=== PATIENT | female | born 1955 | race Caucasian/White ===

== ENCOUNTER 2017-03-25 19:00 | Emergency (ER) | payer MEDICARE ==
[2017-03-25] MEDS ORDERED: Acetaminophen TAB* 325 MG PO ONE (19:35)
[2017-03-25] MEDS ORDERED: Albuterol/Ipratropium NEB.SOL* Albuterol 2.5 MG/Ipratropium 0.5 MG 3 ML INH ONE (19:35)
[2017-03-25] MEDS ORDERED: NS 0.9% 1000 ML* 1,000 ML IV ONE ×2 (19:35→21:49)
[2017-03-25] MEDS ORDERED: methylPREDNISolone 125 MG* 2 ML VIAL IV ONE (19:35)
[2017-03-25] MEDS ORDERED: Magnesium Sulfate 2 GM IV* 2 GM/50 ML BAG IVPB ONE (19:40)
[2017-03-25 20:03] LABS: ABS Basophils 0.1 10^3/ul (0-0.2); ABS Eosinophils 0 10^3/ul (0-0.6); ABS Lymphocytes 0.4 10^3/ul (1.0-4.8); ABS Monocytes 0.4 10^3/ul (0-0.8); ABS Neutrophils 3.9 10^3/ul (1.5-7.7); ABS Nucleated RBC 0 10^3/ul; Eosinophil % 0 % (0-6); Hematocrit 39 % (35-47); Hemoglobin 13.5 g/dl (12.0-16.0); Lymphocyte % 8.1 % (25-47); Mean Corpuscular HGB Conc 35 g/dl (31-36); Mean Corpuscular Hemoglobin 31 pg (27-31); Mean Corpuscular Volume 88 fL (80-97); Mean Platelet Volume 9 um3 (7.4-10.4); Nucleated Red Blood Cells % 0; Platelet Count 166 10^3/ul (150-450); Red Blood Count 4.39 10^6/ul (4.0-5.4); Red Cell Distribution Width 14 % (10.5-15); White Blood Count 4.8 10^3/ul (3.5-10.8)
[2017-03-25 20:21] LABS: EGFR Non-African American 96.7 (>60)
--- NOTE | 2017-03-25 20:23 | RAD ---
Indication: Shortness of breath. Single frontal view of the chest performed at 2010 hours was reviewed. Comparison is made with previous exam dated February 19, 2016. No mediastinal shift is noted. Heart is of normal size and configuration. Lung taylor appear clear. IMPRESSION: NO ACTIVE CARDIOPULMONARY DISEASE IS NOTED.
[2017-03-25] MEDS ORDERED: Oseltamivir CAP* 75 MG PO ONE (20:36)
[2017-03-25] MEDS ORDERED: Potassium Chlor TAB* 20 MEQ TAB.ER PO ONE (20:37)
[2017-03-25] MEDS: Albuterol 2.5 MG/3 ML NEB.SOL* (0.083%) INH SCH (20:38)
--- NOTE | 2017-03-25 22:31 | ED ---
Bud Art Thomas, scribed for Raheem Dowell MD on 03/25/17 at 1938 . Shortness of Breath - HPI Summary HPI Summary: The patient is a 61 year old female presenting to the emergency department complaining of difficulty breathing for the last day and a half. The patient has treated the symptoms with an inhaler prior to arrival. Patient additionally complains of nausea, vomiting, nasal congestion, and fever (101.1 yesterday and 100.3 in the ED). Patient denies chest pain. She is not on home oxygen. Past medical history includes [place] in 2016. Past surgical history includes cardiac stents. The patient is a 1 PPD smoker for the last 40 years. - History of Current Complaint Chief Complaint: EDShortnessOfBreath Hx Obtained From: Patient Onset/Duration: Lasting Days - 1.5, Still Present Timing: Constant Current Severity: Moderate Dyspnea At: Rest Aggrevating Factors: Nothing Alleviating Factors: Other - Patient did have an inhaler treatment earlier today Associated Signs & Symptoms: Fever, Nasal Congestion - Allergy/Home Medications Allergies/Adverse Reactions: Allergies Allergy/AdvReac Type Severity Reaction Status Date / Time Penicillin G Allergy HIVES-ITCHY Verified 03/25/17 19:23 Sulfa Drugs Allergy HIVES- Verified 03/25/17 19:23 ITCHY Adhesive Tape AdvReac See Comment Verified 03/25/17 19:23 PMH/Surg Hx/FS Hx/Imm Hx Previously Healthy: No Endocrine/Hematology History: Denies: Hx Diabetes Cardiovascular History: Reports: Hx Angina, Hx Cardiac Arrest, Hx Coronary Artery Disease, Hx Hypercholesterolemia, Hx Hypertension, Hx Myocardial Infarction, Other Cardiovascular Problems/Disorders - Palpitations; Stent Denies: Hx Pacemaker/ICD, Hx Valvular Heart Disease Respiratory History: Reports: Hx Asthma - USES INHALERS, USUALLY SEASONAL, Hx Chronic Obstructive Pulmonary Disease (COPD), Other Respiratory Problems/ Disorders - Bronchitis History: Denies: Hx Renal Disease Musculoskeletal History: Reports: Hx Back Problems, Other Musculoskeletal History - shoulder and neck pain, carpel tunnel syndrome Denies: Hx Osteoporosis Sensory History: Reports: Hx Contacts or Glasses Denies: Hx Hearing Aid Opthamlomology History: Reports: Hx Contacts or Glasses Psychiatric History: Denies: Hx Panic Disorder - Cancer History Hx Chemotherapy: No Hx Radiation Therapy: No - Surgical History Surgery Procedure, Year, and Place: LT ELBOW 1983 -EPICONDYLITIS; Lt SHOULDER- ARTHROSCPOIC 11/11; CARPAL TUNNEL Rt 1992. 01/29/14 - Lt CARPAL TUNNEL AND ELBOW /ULNAR REPAIR. TONSILECTOMY; Cardiac Stent 02/2016' Hx Anesthesia Reactions: No Infectious Disease History: No Infectious Disease History: Reports: Hx Shingles Denies: Hx Clostridium Difficile, Hx Hepatitis, Hx Human Immunodeficiency Virus (HIV), Hx of Known/Suspected MRSA, Hx Tuberculosis, History Other Infectious Disease, Traveled Outside the [place] in Last 30 Days - Family History Known Family History: Positive: Cardiac Disease - Social History Alcohol Use: Occasionally Alcohol Amount: Maybe two drinks per week Substance Use Type: Reports: None Substance Use Comment - Amount & Last Used: oxycontin, oxycodone Hx Tobacco Use: Yes Smoking Status (MU): Current Every Day Smoker Type: Cigarettes Amount Used/How Often: /4 PPD-1/2 PPD Have You Smoked in the Last Year: Yes Review of Systems Positive: Fever Positive: Other - Nasal congestion Negative: Chest Pain Positive: Other - Difficulty breathing Positive: Vomiting, Nausea All Other Systems Reviewed And Are Negative: Yes Physical Exam - Summary Physical Exam Summary: VITAL SIGNS: Reviewed. GENERAL: Patient is a well-developed and nourished female who is lying comfortable in the stretcher. Patient is not in any acute respiratory distress. HEAD AND FACE: No signs of trauma. No ecchymosis, hematomas or skull depressions. No sinus tenderness. EYES: PERRLA, EOMI x 2, No injected conjunctiva, no nystagmus. EARS: Hearing grossly intact. Ear canals and tympanic membranes are within normal limits. MOUTH: Oropharynx within normal limits. NECK: Supple, trachea is midline, no adenopathy, no JVD, no carotid bruit, no c- spine tenderness, neck with full ROM. CHEST: Symmetric, no tenderness at palpation LUNGS: She has bilateral expiratory wheezes. CVS: She is tachycardic. Regular rhythm, S1 and S2 present, no murmurs or gallops appreciated. ABDOMEN: Soft, non-tender. No signs of distention. No rebound no guarding, and no masses palpated. Bowel sounds are normal. EXTREMITIES: FROM in all major joints, no edema, no cyanosis or clubbing. NEURO: Alert and oriented x 3. No acute neurological deficits. Speech is normal and follows commands. SKIN: Dry and warm Triage Information Reviewed: Yes Vital Signs On Initial Exam: Initial Vitals Temp Pulse Resp BP Pulse Ox 99.0 F 125 44 125/112 93 03/25/17 19:18 03/25/17 19:18 03/25/17 19:18 03/25/17 19:18 03/25/17 19:18 Vital Signs Reviewed: Yes Diagnostics - Vital Signs Vital Signs Temp Pulse Resp BP Pulse Ox 03/25/17 19:18 99.0 F 125 44 125/112 93 - Laboratory Result Diagrams: 03/25/17 19:45 03/25/17 19:45 Lab Statement: Any lab studies that have been ordered have been reviewed, and results considered in the medical decision making process. - Radiology CXR Xray Interpretation: No Acute Changes - NO ACTIVE CARDIOPULMONARY DISEASE IS NOTED. Dr. Dowell has reviewed this report. Radiology Interpretation Completed By: Radiologist - EKG 19:25 Cardiac Rate: Tachycardia EKG Rhythm: Sinus Tachycardia - at 112 BPM EKG Interpretation: Normal intervals, normal axis, no ischemic changes. Course/Dx - Course Assessment/Plan: The patient is a 61 year old female with a history of IL complaining of difficulty breathing for the last day and a half. Patient additionally complains of nausea, vomiting, and fever. She is tachycardic. She has bilateral expiratory wheezes. In the ED course the patient was given acetaminophen, Ventolin, Duoneb, Tamiflu, potassium chloride, IV fluids, and Solu-Medrol. Bloodwork was obtained and troponin is 0.00. Influenza A is positive. EKG shows sinus tachycardia at 112 BPM with normal axis, normal intervals, and no ischemic changes. CXR shows NO ACTIVE CARDIOPULMONARY DISEASE IS NOTED. The patient is diagnosed with Influenza A. The patient is instructed to follow up with primary care. The patient is prescribed ibuprofen and Tamiflu. - Diagnoses Provider Diagnoses: Influenza A Discharge - Discharge Plan Condition: Stable Disposition: HOME Prescriptions: Ibuprofen TAB* [Motrin TAB* 800 MG] 800 mg PO Q6H PRN #30 tab PRN Reason: Fever/Pain Oseltamivir CAP* [Tamiflu CAP*] 75 mg PO DAILY #10 cap Patient Education Materials: Influenza (ED) Referrals: Angela Siu MD [Primary Care Provider] - 3 Days Additional Instructions: Follow up with your primary care physician in three days. Return to the emergency department for any new or worsening symptoms. The documentation as recorded by the Bud guerrier Thomas accurately reflects the service I personally performed and the decisions made by , Raheem Dowell MD.
[2017-03-25 22:42] VITALS: BP 117/57
== END 2017-03-25 22:37 | disposition home or self-care (01) ==
LOC: ED 19:00
DX: J09.X2 Influenza due to identified novel influenza A virus with other respiratory manifestations (principal); I25.2 Old myocardial infarction; J45.909 Unspecified asthma, uncomplicated; F17.210 Nicotine dependence, cigarettes, uncomplicated; Z86.74 Personal history of sudden cardiac arrest; I25.10 Atherosclerotic heart disease of native coronary artery without angina pectoris; E78.00 Pure hypercholesterolemia, unspecified; I10 Essential (primary) hypertension; J44.9 Chronic obstructive pulmonary disease, unspecified
CPT/HCPCS: 36415; 71010; 80053; 83605; 83880; 84484; 85025; 86140; 87502; 93005; 96360; 96374; 96375; 99285; A9270-GY; J2930; J3475

== ENCOUNTER 2017-05-03 09:28 | Observation (INO) | payer MEDICARE ==
[2017-05-03] MEDS ORDERED: Al Hydrox/Mg Hydrox/Simet LIQ* 30 ML UDC PO ONE (09:34)
[2017-05-03] MEDS ORDERED: Lidocaine 2% VISCOUS* 15 ML UDC PO ONE (09:34)
[2017-05-03] MEDS ORDERED: Nitroglycerin TAB 0.4 MG* 0.4 MG TAB SL ONE (09:34)
[2017-05-03 09:54] LABS: Hematocrit 39 % (35-47); Hemoglobin 13.3 g/dl (12.0-16.0); Mean Corpuscular HGB Conc 34 g/dl (31-36); Mean Corpuscular Hemoglobin 30 pg (27-31); Mean Corpuscular Volume 90 fL (80-97); Mean Platelet Volume 9 um3 (7.4-10.4); Platelet Count 234 10^3/ul (150-450); Red Blood Count 4.39 10^6/ul (4.0-5.4); Red Cell Distribution Width 14 % (10.5-15); White Blood Count 8.2 10^3/ul (3.5-10.8)
[2017-05-03] MEDS ORDERED: Nitroglycerin 2% OINT* 1 GM PAK TOPICAL ONE (09:59)
[2017-05-03] MEDS ORDERED: Aspirin Low Dose CHEW TAB* 81 MG PO ONE (10:01)
[2017-05-03 10:09] LABS: EGFR Non-African American 71.4 (>60)
[2017-05-03 10:12] LABS: ABS Basophils 0.1 10^3/ul (0-0.2); ABS Eosinophils 0.2 10^3/ul (0-0.6); ABS Lymphocytes 2.2 10^3/ul (1.0-4.8); ABS Monocytes 0.6 10^3/ul (0-0.8); ABS Nucleated RBC 0 10^3/ul; Lymphocyte % 27.4 % (25-47); Nucleated Red Blood Cells % 0.1
--- NOTE | 2017-05-03 10:35 | RAD ---
HISTORY: Chest pain COMPARISONS: December 02, 2017 VIEWS: 1: frontal portable view of the chest at 10:01 AM FINDINGS: LINES AND TUBES: None. CARDIOMEDIASTINAL SILHOUETTE: The cardiomediastinal silhouette is normal for portable technique. PLEURA: The costophrenic angles are sharp. No pleural abnormalities are noted. LUNG PARENCHYMA: The lungs are clear. ABDOMEN: The upper abdomen is clear. There is no subphrenic gas. BONES AND SOFT TISSUES: No bone or soft tissue abnormalities are noted. IMPRESSION: NO ACTIVE CARDIOPULMONARY DISEASE.
--- NOTE | 2017-05-03 11:52 | ADMNOTE ---
Subjective Date of Service: 05/03/17 Interval History: ADMISSION HISTORY AND PHYSICAL EXAM: Allergies Allergy/AdvReac Type Severity Reaction Status Date / Time MS Penicillin G Allergy HIVES-ITCHY Verified 03/25/17 19:23 [Penicillin G] MS Sulfa Drugs [Sulfa Drugs] Allergy HIVES- Verified 03/25/17 19:23 ITCHY Adhesive Tape AdvReac See Comment Verified 03/25/17 19:23 Home Medications Medication Instructions Recorded Confirmed Type Nitroglycerin TAB 0.4 MG* 0.4 mg SL Q5M PRN #25 tab 02/23/16 05/03/17 Rx Lisinopril TAB* [Prinivil TAB 5 5 mg PO QPM 03/13/16 05/03/17 History MG*] Metoprolol Succinate XL TAB* 25 mg PO DAILY 05/16/16 05/03/17 History [Toprol XL TAB*] Pregabalin CAP(*) [Lyrica CAP(*)] 25 mg PO BID 07/14/16 05/03/17 History Albuterol HFA INHALER* [Ventolin 2 puff INH Q4H PRN 12/05/16 05/03/17 History HFA Inhaler*] Atorvastatin* [Lipitor 80 MG*] 80 mg PO QPM 12/05/16 05/03/17 History Lidocaine PATCH 5%* [Lidoderm 5% 1 patch TRANSDERM DAILY 01/12/17 05/03/17 History Patch*] Omeprazole CAP* [Prilosec CAP* 20 40 mg PO DAILY 05/03/17 05/03/17 History MG] Ticagrelor* [Brilinta 90 MG*] 60 mg PO BID 05/03/17 05/03/17 History oxyCODONE SR TAB(*) [Oxycontin 10 10 mg PO BID 05/03/17 05/03/17 History mg (*)] oxyCODONE TAB* [Roxycodone TAB 5 5 mg PO Q8H PRN MDD 3 tabs 05/03/17 05/03/17 History mg*] tiZANidine TAB* [Zanaflex TAB*] 4 mg PO BEDTIME 05/03/17 05/03/17 History + HPI: The patient was in her usual state of health when whe awoke at about 5 AM, her usual time, and got ready to go to work . She took her AM meds and had breakfast. At about 6:30 she developed midsternal chest "burning and throbbing " which later radiated to both arms. She went to work. She twice took a NTG with partial relief. Later the pain radiated to both sides of her jaw, which is unusual for her. The jaw pain is gone and she now has some mild soreness/ pain in the midsternal area only. Family History: Findings - 4 siblings have CAD. Social History: Findings - Lives with her who is her SDM. Smokes. No alcohol abuse. Works full-time at [employer]. Past Medical History: Findings - L shoulder, wrist, elbow surgery. Chronic L shoulder pain. RCA stent 02/2016. Review of Systems - Measurements Intake and Output: Intake and Output Last 24 Hours 05/01/17 05/02/17 05/03/17 05/04/17 06:59 06:59 06:59 06:59 Weight 147 lb - Review of Systems Constitutional Symptoms: Negative: Weight Gain, Weight Loss, Weakness, Fatigue, Fever, Night Sweats, Unexplained Falls, Other Dermatology: Positive: Normal HEENT: Positive: Normal Eyes: Positive: Normal Thyroid: Positive: Normal Pulmonary: Positive: Normal Cardiology: Positive: Chest Pain Gastroenterology: Positive: Normal Genital - Urinary: Positive: Normal Musculoskeletal: Positive: Other - shoulder pain Endocrinology: Positive: Normal Hematologic/Lymphatic: Negative: Anemia, Easy Brusing, Hx Leukemia, Hx Lymphoma, Use of Anticoagulant, Use of Antiplatelet Drugs, Other Neurology: Positive: Normal Psychiatry: Positive: Normal Allergic/Immunologic: Negative: Hx Anaphylaxis, Hx Angioedema, Hx Environmental, Hx Seasonal, Athsma, Hx HIV, Immunocompromise, Swollen Glands LymphNodes, Other Objective Vital Signs - 8 hr 05/03/17 05/03/17 05/03/17 09:30 09:36 10:30 Temperature 97.5 F Pulse Rate 91 56 Respiratory 18 16 Rate Blood Pressure 177/155 152/82 136/52 (mmHg) O2 Sat by Pulse 97 Oximetry 05/03/17 05/03/17 05/03/17 11:24 11:26 11:30 Temperature Pulse Rate 53 56 Respiratory 12 12 Rate Blood Pressure 134/65 114/65 (mmHg) O2 Sat by Pulse 98 98 Oximetry Oxygen Devices in Use Now: None Appearance: Alert, partly up on ED stretcher. In good spirits. Looks comfortable. Eyes: No Scleral Icterus Ears/Nose/Mouth/Throat: Clear Oropharnyx, Mucous Membranes Moist Neck: NL Appearance and Movements; NL JVP, No Thyroid Enlargement, Masses Respiratory: Symmetrical Chest Expansion and Respiratory Effort, Clear to Auscultation, Clear to Percussion Cardiovascular: NL Sounds; No Murmurs; No JVD, RRR, No Edema Abdominal: NL Sounds; No Tenderness; No Distention, No Hepatosplenomegaly, - Extremities: No Edema, No Clubbing, Cyanosis, - Skin: No Rash or Ulcers, No Nodules or Sclerosis, - Neurological: Alert and Oriented x 3, NL Sensation Result Diagrams: 05/03/17 09:45 05/03/17 09:45 Assess/Plan/Problems-Billing Assessment: - Patient Problems (1) Chest pain Current Visit: Yes Status: Acute Code(s): R07.9 - CHEST PAIN, UNSPECIFIED SNOMED Code(s): 43307223 Comment: Second troponin, nuclear/exercise stress test. Discussed with Drs. Green and Jhonny. Continue ASA, ticagrelor (60 mg bid), statin, BB. (2) Smoking Current Visit: No Status: Acute Code(s): F17.200 - NICOTINE DEPENDENCE, UNSPECIFIED, UNCOMPLICATED SNOMED Code(s): 29097957 Comment: Patient advised to quit smoking and avoid second hand smoke. Nicotine patch ordered. (3) Chronic left shoulder pain Current Visit: Yes Status: Acute Code(s): M25.512 - PAIN IN LEFT SHOULDER; G89.29 - OTHER CHRONIC PAIN SNOMED Code(s): 08191372 Comment: Home meds ordered.
[2017-05-03] MEDS ORDERED: Nitroglycerin TAB 0.4 MG* 0.4 MG TAB SL PRN (12:32)
[2017-05-03] MEDS ORDERED: Albuterol HFA INHALER* 8 gm MDI INH PRN (12:32)
[2017-05-03] MEDS ORDERED: oxyCODONE TAB* 5 MG TAB PO PRN (12:32)
[2017-05-03] MEDS ORDERED: Nicotine PATCH 21 MG/24 HR* PATCH ONE (13:20)
[2017-05-03] MEDS: Nicotine PATCH 21 MG/24 HR* PATCH TRANSDERM SCH (13:23)
[2017-05-03] MEDS ORDERED: Lisinopril TAB* 5 MG PO SCH (18:00)
[2017-05-03] MEDS ORDERED: Atorvastatin* 80 MG TAB PO SCH (18:00)
[2017-05-03] MEDS: Ticagrelor* 90 MG TAB PO SCH (20:57)
[2017-05-03] MEDS: oxyCODONE SR TAB(*) 10 MG TAB.SR PO SCH (20:58)
[2017-05-03] MEDS ORDERED: tiZANidine TAB* 2 MG PO SCH (21:00)
[2017-05-03] MEDS: Pregabalin CAP(*) 25 MG PO SCH (21:02)
[2017-05-04] MEDS ORDERED: Omeprazole CAP* 20 MG PO SCH (07:30)
[2017-05-04] MEDS ORDERED: Lidocaine PATCH 5%* 1 PATCH TRANSDERM SCH (09:00)
[2017-05-04] MEDS ORDERED: Metoprolol Succinate XL TAB* 25 MG PO SCH (09:00)
[2017-05-04] MEDS ORDERED: Aspirin Low Dose CHEW TAB* 81 MG PO SCH (09:00)
[2017-05-04] MEDS: oxyCODONE SR TAB(*) 10 MG TAB.SR PO SCH (09:22)
[2017-05-04] MEDS: Ticagrelor* 90 MG TAB PO SCH (09:26)
[2017-05-04] MEDS: Pregabalin CAP(*) 25 MG PO SCH (09:27)
[2017-05-04] MEDS: Nicotine PATCH 21 MG/24 HR* PATCH TRANSDERM SCH (09:36)
[2017-05-04 12:27] VITALS: BP 131/66
--- NOTE | 2017-05-04 13:50 | RAD ---
HISTORY: Chest pain COMPARISONS: December 05, 2016 TECHNIQUE: A 1 day stress/rest myocardial perfusion study was performed, with exercise stress. The exercise portion was performed using the Hal protocol, for a total METs of 7. The stress portion was monitored by Dr. Monroe. Gated SPECT imaging was performed, with CT-based attenuation correction DOSE: Stress: Technetium 99m tetrofosmin, 26.53 millicuries, injected at 12:34 PM on May 04, 2017 Rest: Technetium 99m tetrofosmin, 10.15 millicuries, injected at 6:20 AM May 04, 2017 Pharmacologic agent: None FINDINGS: CARDIAC MONITORING: Peak heart rate of 166 bpm, 103% of predicted EF: 73% TID: 1.24 MOTION: Normal motion, with normal wall thickening. PERFUSION: There are no fixed or reversible perfusion defects. OTHER: None IMPRESSION: NO FIXED OR REVERSIBLE PERFUSION DEFECTS. ASSESSMENT: LOW RISK. Based on imaging criteria from ACC/AHA 2002. Guideline Update for the Management of Patient's with Chronic Stable Angina, table 23. Noninvasive Risk Stratification. CPT II Codes: 3570F
--- NOTE | 2017-05-05 01:18 | DS ---
CC: Dr. Garcia; Dr. Green DISCHARGE SUMMARY: DATE OF ADMISSION: 05/03/17 DATE OF DISCHARGE: 05/04/17 HISTORY OF PRESENT ILLNESS: This 61-year-old woman presented with pain radiating to both arms from her mid sternum. Later she went to work and it radiated to both sides of her jaw. The jaw pain went away, but she had some mild residual soreness in the mid sternal area when she arrived at the emergency room. The history and physical exam are detailed in the admission note. The patient does have a history of right coronary artery stenting in the past. She continues on a reduced dose of ticagrelor having finished a year of full dose ticagrelor. She takes aspirin every day. She did not miss any of her medications on the day of admission. The patient had no more pain in the hospital. She was admitted to a telemetry unit. She had 2 troponin levels, both of which were 0. She underwent a nuclear stress test on the day of discharge. This showed no evidence of fixed or reversible hypoperfusion. The patient was discharged with no change in her medical regimen. FINAL DIAGNOSES: 1. Chest pain. 2. Tobacco use. 3. Chronic left shoulder pain. DISCHARGE MEDICATIONS: 1. Nicotine patch 21 mg for 24 hours, change daily. 2. Nitroglycerin 0.4 mg sublingual every 5 minutes p.r.n. 3. Lisinopril 5 mg h.s. 4. Metoprolol succinate 25 mg daily. 5. Pregabalin 25 mg b.i.d. 6. Albuterol inhaler 2 puffs every 4 hours p.r.n. 7. Atorvastatin 80 mg h.s. 8. Lidocaine patch 1 daily. 9. Oxycodone 5 mg every 8 hours p.r.n. 10. Oxycodone SR 10 mg b.i.d. 11. Omeprazole 40 mg daily. 12. Tizanidine 4 mg h.s. 13. Ticagrelor 60 mg bid. 14. ASA 82 mg daily. [id number]/[facility] [place] #: [id number] [facility]
--- NOTE | 2017-05-06 13:24 | ED ---
Reddy Art Stephanie, scribed for Curt Hurley MD on 05/03/17 at 1041 . HPI Chest Pain - HPI Summary HPI Summary: The pt is a 61 y/o F presenting to the ED with c/o CP that began at 06:30 today. Symptoms include bilateral arm pain, radiating jaw pain, WOOD, productive cough (clear sputum) and intermittent chills. The pt denies diaphoresis. The pt had 3 nitroglycerine DEBATE DIRECTOR that have relieved most of her pain. The pt report a similar pain today as when she had cardiac arrests prior. The pt reports having influenza over and the New Year that has since resolved but has left a residual cough. The pt reports she was decreased from 90 mg to 60 mg of Brilinta. She reports having a stress test in last 6 months. - History of Current Complaint Chief Complaint: EDChestPainROMI Time Seen by Provider: 05/03/17 09:56 Hx Obtained From: Patient, Family/Scrubber System Attendant - Onset/Duration: Started Hours Ago - 4, Still Present Time of Onset: 06:30 Timing: Constant, Lasting Hours - 4 Pain Intensity: 3 Pain Scale Used: 0-10 Numeric Chest Pain Location: Mid Sternal Chest Pain Radiates: Yes Chest Pain Radiates To:: Arm - bilaterally, Jaw Character: Cough, Productive, Other: - WOOD, chills Aggravating Factor(s): Nothing Alleviating Factor(s): Nothing Associated Signs and Symptoms: Positive: Headaches, Chills, Productive Cough. Negative: Diaphoresis - Additional Pertinent History Primary Care Physician: [id number] - Allergy/Home Medications Allergies/Adverse Reactions: Allergies Allergy/AdvReac Type Severity Reaction Status Date / Time MS Penicillin G Allergy HIVES-ITCHY Verified 03/25/17 19:23 [Penicillin G] MS Sulfa Drugs [Sulfa Drugs] Allergy HIVES- Verified 03/25/17 19:23 ITCHY Adhesive Tape AdvReac See Comment Verified 03/25/17 19:23 Home Medications: Home Medications Omeprazole CAP* [Prilosec CAP* 20 MG] 40 mg PO DAILY 05/03/17 [History Confirmed 05/03/17] Ticagrelor* [Brilinta 90 MG*] 60 mg PO BID 05/03/17 [History Confirmed 05/03/17] oxyCODONE SR TAB(*) [Oxycontin 10 mg (*)] 10 mg PO BID 05/03/17 [History Confirmed 05/03/17] oxyCODONE TAB* [Roxycodone TAB 5 mg*] 5 mg PO Q8H PRN MDD 3 tabs 05/03/17 [ History Confirmed 05/03/17] tiZANidine TAB* [Zanaflex TAB*] 4 mg PO BEDTIME 05/03/17 [History Confirmed 04/19] PMH/Surg Hx/FS Hx/Imm Hx Endocrine/Hematology History: Denies: Hx Diabetes Cardiovascular History: Reports: Hx Angina, Hx Cardiac Arrest, Hx Coronary Artery Disease, Hx Hypercholesterolemia, Hx Hypertension, Hx Myocardial Infarction, Other Cardiovascular Problems/Disorders - Palpitations; Stent Denies: Hx Congestive Heart Failure, Hx Pacemaker/ICD, Hx Valvular Heart Disease Respiratory History: Reports: Hx Asthma - USES INHALERS, USUALLY SEASONAL, Hx Chronic Obstructive Pulmonary Disease (COPD), Other Respiratory Problems/ Disorders - Bronchitis History: Denies: Hx Renal Disease Musculoskeletal History: Reports: Hx Back Problems, Other Musculoskeletal History - shoulder and neck pain, carpel tunnel syndrome Denies: Hx Osteoporosis Sensory History: Reports: Hx Contacts or Glasses Denies: Hx Hearing Aid Opthamlomology History: Reports: Hx Contacts or Glasses Psychiatric History: Denies: Hx Panic Disorder - Cancer History Hx Chemotherapy: No Hx Radiation Therapy: No - Surgical History Surgery Procedure, Year, and Place: LT ELBOW 1982 -EPICONDYLITIS; Lt SHOULDER- ARTHROSCPOIC 11/11; CARPAL TUNNEL Rt 1992. 01/29/14 - Lt CARPAL TUNNEL AND ELBOW /ULNAR REPAIR. TONSILECTOMY; Cardiac Stent 02/2016' Hx Anesthesia Reactions: No Infectious Disease History: No Infectious Disease History: Reports: Hx Shingles Denies: Hx Clostridium Difficile, Hx Hepatitis, Hx Human Immunodeficiency Virus (HIV), Hx of Known/Suspected MRSA, Hx Tuberculosis, History Other Infectious Disease, Traveled Outside the [place] in Last 30 Days - Family History Known Family History: Positive: Cardiac Disease - Social History Alcohol Use: Occasionally Alcohol Amount: Maybe two drinks per week Substance Use Type: Reports: None Substance Use Comment - Amount & Last Used: oxycontin, oxycodone Hx Tobacco Use: Yes Smoking Status (MU): Current Every Day Smoker Type: Cigarettes Amount Used/How Often: /4 PPD-1/2 PPD Have You Smoked in the Last Year: Yes Review of Systems Positive: Chills. Negative: Fever, Skin Diaphoresis Negative: Erythema Negative: Sore Throat Positive: Chest Pain Positive: Cough - productive. Negative: Shortness Of Breath Negative: Abdominal Pain, Vomiting, Nausea Negative: dysuria, hematuria Positive: Other - bilateral arm pain, radiating jaw pain. Negative: Myalgia, Edema Negative: Rash Neurological: Other - Negative: dizziness Positive: Headache All Other Systems Reviewed And Are Negative: Yes Physical Exam - Summary Physical Exam Summary: Constitutional: Well-developed, Well-nourished, Alert. (-) Distressed Skin: Warm, Dry HENT: Normocephalic; Atraumatic Eyes: Conjunctiva normal Neck: Musculoskeletal ROM normal neck. (-) JVD, (-) Stridor, (-) Tracheal deviation Cardio: Rhythm regular, rate normal, Heart sounds normal; Intact distal pulses; The pedal pulses are 2+ and symmetric. Radial pulses are 2+ and symmetric. (-) Murmur Pulmonary/Chest wall: Effort normal. (-) Respiratory distress, (-) Wheezes, (-) Rales Abd: Soft, (-) Tenderness, (-) Distension, (-) Guarding, (-) Rebound Musculoskeletal: (-) Edema Lymph: (-) Cervical adenopathy Neuro: Alert, Oriented x3 Psych: Mood and affect Normal Triage Information Reviewed: Yes Vital Signs On Initial Exam: Initial Vitals Temp Pulse Resp BP Pulse Ox 97.5 F 91 18 177/155 97 05/03/17 09:30 05/03/17 09:30 05/03/17 09:30 05/03/17 09:30 05/03/17 09:30 Vital Signs Reviewed: Yes Diagnostics - Vital Signs Vital Signs Temp Pulse Resp BP Pulse Ox 05/03/17 09:36 152/82 05/03/17 09:30 97.5 F 91 18 177/155 97 - Laboratory Lab Results: Lab Results 05/03/17 Range/Units 09:45 WBC 8.2 (3.5-10.8) 10^3/ul RBC 4.39 (4.0-5.4) 10^6/ul Hgb 13.3 (12.0-16.0) g/dl Hct 39 (35-47) % MCV 90 (80-97) fL MCH 30 (27-31) pg MCHC 34 (31-36) g/dl RDW 14 (10.5-15) % Plt Count 234 (150-450) 10^3/ul MPV 9 (7.4-10.4) um3 Neut % (Auto) Pending Lymph % (Auto) Pending [place] % (Auto) Pending Eos % (Auto) Pending Baso % (Auto) Pending Absolute Neuts (auto) Pending Absolute Lymphs (auto) Pending Absolute Monos (auto) Pending Absolute Eos (auto) Pending Absolute Basos (auto) Pending Absolute Nucleated RBC Pending Nucleated RBC % Pending Result Diagrams: 05/03/17 09:45 05/03/17 09:45 Lab Statement: Any lab studies that have been ordered have been reviewed, and results considered in the medical decision making process. - Radiology CXR Xray Interpretation: No Acute Changes Radiology Interpretation Completed By: Radiologist - NO ACTIVE CARDIOPULMONARY DISEASE. - EKG 09:35 Cardiac Rate: NL EKG Rhythm: Sinus Rhythm - 72 BPM EKG Interpretation: No STEMI Chest Pain Course/Dx - Course Course Of Treatment: The pt has CAD with stenting and multiple cardiac arrest in the past. She has acute coronary syndrome. CP resolved after nitro. We will recommend admission. Dr. Amaro agreed to admit the pt for a stress test. - Diagnoses Provider Diagnoses: Unstable angina - Provider Notifications Discussed Care Of Patient With: Nikita Amaro - Dr. Amaro agreed to admit the pt for a stress test. Time Discussed With Above Provider: 10:56 Instructed by Provider To: Admit As Inpatient Discharge - Discharge Plan Condition: Stable Disposition: ADMITTED TO [facility] Patient Education Materials: Angina (ED) Referrals: Angela Siu MD [Primary Care Provider] - The documentation as recorded by the Reddy guerrier Stephanie accurately reflects the service I personally performed and the decisions made by , Curt Hurley MD.
== END 2017-05-04 16:45 | disposition home or self-care (01) ==
LOC: ED 09:28 → MEDTELE 12:24
PROVIDERS: ADMIT Internal Medicine; ATTEND Internal Medicine
DX: I20.9 Angina pectoris, unspecified (principal); R07.9 Chest pain, unspecified; Z72.0 Tobacco use; M25.512 Pain in left shoulder
CPT/HCPCS: 36415; 71045; 78452; 80053; 83605; 84484; 85025; 93005; 93017; 99283; 99406; A9270-GY; A9502; G0378

== ENCOUNTER → 2018-06-14 19:36 | Emergency (ER) | payer MEDICARE ==
[~2018-06-14 19:36] MED LIST: Lidocaine 1%* 5 ML VIAL INJ ONE
--- NOTE | 2018-06-14 20:12 | ED ---
Skin Complaint - HPI Summary HPI Summary: 62 yo female presents with cyst to her right cheek for the last year. Over the last 2-3 days has been enlarging and painful. She tried to squeeze the site at home, but had no relief. No fevers or chills. She is requesting that this be lanced today. - History of Current Complaint Chief Complaint: EDRashSkinAbscess Time Seen by Provider: 06/14/18 20:12 Stated Complaint: CYST ON RT CHEEK PER PT Hx Obtained From: Patient Onset Severity: Mild Current Severity: Severe Pain Intensity: 10 Pain Scale Used: 0-10 Numeric - Additional Pertinent History Primary Care Physician: [id number] - Allergy/Home Medications Allergies/Adverse Reactions: Allergies Allergy/AdvReac Type Severity Reaction Status Date / Time Penicillins Allergy Hives Verified 06/14/18 19:42 Sulfa (Sulfonamide Allergy Hives Verified 06/14/18 19:42 Antibiotics) Adhesive Tape AdvReac See Comment Verified 06/14/18 19:42 PMH/Surg Hx/FS Hx/Imm Hx Endocrine/Hematology History: Denies: Hx Diabetes Cardiovascular History: Reports: Hx Angina, Hx Cardiac Arrest, Hx Coronary Artery Disease, Hx Hypercholesterolemia, Hx Hypertension, Hx Myocardial Infarction, Other Cardiovascular Problems/Disorders - Palpitations; Stent Denies: Hx Congestive Heart Failure, Hx Pacemaker/ICD, Hx Valvular Heart Disease Respiratory History: Reports: Hx Asthma - USES INHALERS, USUALLY SEASONAL, Hx Chronic Obstructive Pulmonary Disease (COPD), Other Respiratory Problems/ Disorders - Bronchitis History: Denies: Hx Renal Disease Musculoskeletal History: Reports: Hx Back Problems, Other Musculoskeletal History - shoulder and neck pain, carpel tunnel syndrome Denies: Hx Osteoporosis Sensory History: Reports: Hx Contacts or Glasses Denies: Hx Hearing Aid Opthamlomology History: Reports: Hx Contacts or Glasses Psychiatric History: Denies: Hx Panic Disorder - Cancer History Hx Chemotherapy: No Hx Radiation Therapy: No - Surgical History Surgery Procedure, Year, and Place: LT ELBOW 1982 -EPICONDYLITIS; Lt SHOULDER- ARTHROSCPOIC 11/11; CARPAL TUNNEL Rt 1992. 01/29/14 - Lt CARPAL TUNNEL AND ELBOW /ULNAR REPAIR. TONSILECTOMY; Cardiac Stent 02/2016' Hx Anesthesia Reactions: No Infectious Disease History: No Infectious Disease History: Reports: Hx Shingles Denies: Hx Clostridium Difficile, Hx Hepatitis, Hx Human Immunodeficiency Virus (HIV), Hx of Known/Suspected MRSA, Hx Tuberculosis, History Other Infectious Disease, Traveled Outside the [place] in Last 30 Days - Family History Known Family History: Positive: Cardiac Disease - Social History Alcohol Use: Weekly Alcohol Amount: 4 drinks per week Substance Use Type: Reports: Other Substance Use Comment - Amount & Last Used: Medicinal Marijuana Hx Tobacco Use: Yes Smoking Status (MU): Current Every Day Smoker Type: Cigarettes Amount Used/How Often: 8-10 cigarettes/day Have You Smoked in the Last Year: Yes Review of Systems Constitutional: Negative ENT: Negative Cardiovascular: Negative Respiratory: Negative Gastrointestinal: Negative Positive: Other - sebaceous cyst right cheek Neurological: Negative Psychological: Normal All Other Systems Reviewed And Are Negative: Yes Physical Exam - Summary Physical Exam Summary: GENERAL: NAD. WDWN. No pain distress. SKIN: RIGHT CHEEK: 1.5cm area of firmness underlying the skin. TTP. No induration, warmth, or erythema. NECK: Supple. Nontender. No lymphadenopathy. CHEST: No accessory muscle use. Breathing comfortably and in no distress. CV: Pulses intact. Cap refill <2seconds NEURO: Alert. PSYCH: Age appropriate behavior. Triage Information Reviewed: Yes Vital Signs On Initial Exam: Initial Vitals Temp Pulse Resp BP Pulse Ox 98.7 F 75 16 137/89 97 06/14/18 19:37 06/14/18 19:37 06/14/18 19:37 06/14/18 19:37 06/14/18 19:37 Vital Signs Reviewed: Yes Procedures - Incision and Drainage Right Face Anesthesia: Local Instrument(s): Scalpel - #11 Packing: Other - None Diagnostics - Vital Signs Vital Signs Temp Pulse Resp BP Pulse Ox 06/14/18 19:37 98.7 F 75 16 137/89 97 - Laboratory Lab Statement: Any lab studies that have been ordered have been reviewed, and results considered in the medical decision making process. Course/Dx - Course Course Of Treatment: The procedure was explained to the pt and all questions were answered. A time out was performed, witnessed, and signed. The area was cleansed with an alcohol pad. 1mL of 1% lidocaine without epi was administered and good anesthetization was achieved. A #11 blade was used to make a 4mm linear incision. Copious thick yellow/white purulent matter was able to be expressed. The wound was bandaged with a band-aid. Pt tolerated procedure well. - Diagnoses Provider Diagnoses: Sebaceous cyst Discharge - Sign-Out/Discharge Documenting (check all that apply): Patient Departure Patient Received Moderate/Deep Sedation with Procedure: No - Discharge Plan Condition: Stable Disposition: HOME Patient Education Materials: Abscess (ED), Cyst (ED) Referrals: Tomás Cheema MD [Medical Doctor] - As Soon As Possible Angela Siu MD [Primary Care Provider] - Additional Instructions: If you develop a fever, shortness of breath, chest pain, new or worsening symptoms - please call your PCP or go to the ED. Your blood pressure was high at todays visit. Please see your primary provider within 4 weeks for recheck and re-evaluation. Please keep the area covered with a band-aid until well healed. Please call dermatology at the number below to schedule an appointment for further evaluation. - Billing Disposition and Condition Condition: STABLE Disposition: Home
[2018-06-14 20:52] VITALS: BP 129/82
== END | disposition home or self-care (01) ==
LOC: ED 19:36
DX: L72.3 Sebaceous cyst (principal); I25.119 Atherosclerotic heart disease of native coronary artery with unspecified angina pectoris; I10 Essential (primary) hypertension; Z95.5 Presence of coronary angioplasty implant and graft; J44.9 Chronic obstructive pulmonary disease, unspecified; Z88.0 Allergy status to penicillin; Z88.2 Allergy status to sulfonamides; Z91.048 Other nonmedicinal substance allergy status; Z82.49 Family history of ischemic heart disease and other diseases of the circulatory system; F17.210 Nicotine dependence, cigarettes, uncomplicated
CPT/HCPCS: 10060; 99282

== ENCOUNTER 2021-08-31 19:09 | Inpatient (IN) ==
[2021-08-31 20:11] LABS: ABS Basophils 0.1 10^3/ul (0-0.2); ABS Eosinophils 0.1 10^3/ul (0-0.6); ABS Lymphocytes 1.5 10^3/ul (1.0-4.8); ABS Monocytes 0.7 10^3/ul (0-0.8); ABS Neutrophils 4.8 10^3/ul (1.5-7.7); Eosinophil % 1.6 %; Hematocrit 37 % (35-47); Hemoglobin 12.4 g/dL (12.0-16.0); Lymphocyte % 20.4 %; Mean Corpuscular HGB Conc 34 g/dL (31-36); Mean Corpuscular Hemoglobin 30 pg (27-31); Mean Corpuscular Volume 91 fL (80-97); Mean Platelet Volume 8.9 fL (7.4-10.4); Platelet Count 199 10^3/uL (150-450); Red Blood Count 4.09 10^6 /uL (3.70-4.87); Red Cell Distribution Width 14 % (10-15); White Blood Count 7.1 10^3/uL (3.5-10.8)
[2021-08-31 20:18] LABS: INR 1.14 (0.86-1.15)
[2021-08-31 20:47] LABS: Albumin 4.2 g/dL (3.2-5.2); Albumin/Globulin Ratio 1.8 (1-3); Calcium 9.1 mg/dL (8.6-10.3); Globulin 2.3 g/dL (2-4); Potassium 4.1 mmol/L (3.5-5.0); Total Bilirubin 0.5 mg/dL (0.2-1.0); Total Protein 6.5 g/dL (6.4-8.9); eGFR CKD-EPI 83.5 (>60)
[2021-08-31] MEDS ORDERED: Lactated Ringers 1000 ml BAG 1,000 ML IV ONE (20:50)
[2021-08-31 21:29] LABS: High Sensitivity Troponin 1 Hr 6 pg/mL (<15)
[2021-09-01] MEDS: Enoxaparin 40 MG/0.4 ML SYR SUBCUT SCH ×2 (00:18→20:04)
[2021-09-01] MEDS ORDERED: Albuterol HFA INHALER 8 gm MDI INH PRN (01:16)
[2021-09-01] MEDS: Aspirin EC 81 mg TAB.EC (enteric coated) PO SCH (09:16)
[2021-09-01] MEDS ORDERED: Nitro 2% OINT (Nitroglycerin) 1 INCH/PAK TOPICAL ONE (11:38)
[2021-09-01] MEDS ORDERED: Remdesivir 100 mg Vial 200 MG in NS 0.9% 250 ml 210 ML IV ONE (11:43)
[2021-09-02 09:12] LABS: ABS Lymphocytes 1.5 10^3/ul (1.0-4.8); ABS Monocytes 0.5 10^3/ul (0-0.8); Hematocrit 43 % (35-47); Hemoglobin 14.2 g/dL (12.0-16.0); Lymphocyte % 21.6 %; Mean Corpuscular HGB Conc 33 g/dL (31-36); Mean Corpuscular Hemoglobin 30 pg (27-31); Mean Corpuscular Volume 90 fL (80-97); Mean Platelet Volume 8.9 fL (7.4-10.4); Nucleated Red Blood Cells % 0.1; Platelet Count 231 10^3/uL (150-450); Red Blood Count 4.77 10^6 /uL (3.70-4.87); Red Cell Distribution Width 14 % (10-15); White Blood Count 7.1 10^3/uL (3.5-10.8)
[2021-09-02 09:18] LABS: INR 1.21 (0.86-1.15)
[2021-09-02] MEDS: Remdesivir 100 mg Vial 100 MG in NS 0.9% 250 ml 230 ML IV SCH (09:37)
[2021-09-02 10:02] LABS: Albumin/Globulin Ratio 1.5 (1-3); Calcium 9.8 mg/dL (8.6-10.3); Globulin 2.7 g/dL (2-4); Potassium 4.2 mmol/L (3.5-5.0); Total Bilirubin 0.6 mg/dL (0.2-1.0); Total Protein 6.7 g/dL (6.4-8.9); eGFR CKD-EPI 94.9 (>60)
[2021-09-02] MEDS: Aspirin EC 81 mg TAB.EC (enteric coated) PO SCH (10:13)
[2021-09-02] MEDS ORDERED: Iohexol 350 (CONTRAST) 500 ML MDV IV ONE (17:51)
[2021-09-02] MEDS: Enoxaparin 40 MG/0.4 ML SYR SUBCUT SCH (19:58)
[2021-09-03 06:35] LABS: INR 1.28 (0.86-1.15)
[2021-09-03 06:55] LABS: Albumin/Globulin Ratio 1.5 (1-3); Calcium 9.6 mg/dL (8.6-10.3); Globulin 2.6 g/dL (2-4); Potassium 3.8 mmol/L (3.5-5.0); Total Bilirubin 0.6 mg/dL (0.2-1.0); Total Protein 6.6 g/dL (6.4-8.9); eGFR CKD-EPI 96.9 (>60)
[2021-09-03] MEDS: Aspirin EC 81 mg TAB.EC (enteric coated) PO SCH (09:12)
[2021-09-03] MEDS: Remdesivir 100 mg Vial 100 MG in NS 0.9% 250 ml 230 ML IV SCH (10:04)
[2021-09-03 13:22] VITALS: BP 141/67
== END 2021-09-03 14:10 | disposition home or self-care (01) | DRG 179 ==
LOC: EDHOLD 19:09 → ED 19:09 → SUATTDRO 22:44 → EDHOLD 09-01 03:14 → MEDTELE 09-01 03:56
PROVIDERS: ADMIT Hospitalist; ATTEND Internal Medicine

== ENCOUNTER 2022-03-21 08:33 | Observation (INO) ==
[2022-03-21 09:30] LABS: ABS Basophils 0.1 10^3/ul (0-0.2); ABS Eosinophils 0.2 10^3/ul (0-0.6); ABS Lymphocytes 2.2 10^3/ul (1.0-4.8); ABS Monocytes 0.6 10^3/ul (0-0.8); Eosinophil % 2.3 %; Hematocrit 39 % (35-47); Hemoglobin 13.2 g/dL (12.0-16.0); Lymphocyte % 31.6 %; Mean Corpuscular HGB Conc 34 g/dL (31-36); Mean Corpuscular Hemoglobin 30 pg (27-31); Mean Corpuscular Volume 89 fL (80-97); Nucleated Red Blood Cells % 0.1; Platelet Count 188 10^3/uL (150-450); Red Blood Count 4.39 10^6 /uL (3.70-4.87); Red Cell Distribution Width 14 % (10-15)
[2022-03-21] MEDS ORDERED: Midazolam 5 mg/5 ml VIAL 1 mg/ml 5 ml VIAL (5 mg) ONE (09:46)
[2022-03-21 09:47] LABS: Albumin/Globulin Ratio 1.7 (1-3); Globulin 2.4 g/dL (2-4); Total Bilirubin 0.4 mg/dL (0.2-1.0); Total Protein 6.4 g/dL (6.4-8.9); eGFR CKD-EPI 82.2 (>60)
[2022-03-21] MEDS ORDERED: Heparin 2 UNITS/ML 1000 mls 1,000 ML IV ONE ×3 (09:47→10:58)
[2022-03-21] MEDS ORDERED: VERAPAMIL 2.5 MG/ML 2 ML VIAL ** 5 mg/2 ml ONE (09:47)
[2022-03-21] MEDS ORDERED: fentaNYL 100 mcg/2 ml 50 MCG/ML VIAL ONE (09:47)
[2022-03-21] MEDS ORDERED: Heparin 1,000 UNIT/ML 10 ml (10,000 UNITS) CATHLAB/DIALYSIS ONE ×2 (09:47→11:11)
[2022-03-21] MEDS ORDERED: nitroGLYCERIN DRIP 25,000 MCG/250 ML BTL ONE (09:47)
[2022-03-21] MEDS ORDERED: Lidocaine 1% MPF 5 ML VIAL ONE (09:48)
[2022-03-21] MEDS ORDERED: Iohexol 350 (CONTRAST) 100 ML PAK IV ONE ×2 (09:48→10:45)
[2022-03-21 09:56] LABS: Activated Partial Thrombo Time 32.2 seconds (26.0-38.0); INR 1.13 (0.88-1.18)
[2022-03-21] MEDS ORDERED: niCARdipine 0.1MG/ML IVPREMIX 20 MG/200 ML BAG IV ONE (10:34)
[2022-03-21] MEDS ORDERED: Norepinephrine IV 1 MG/ML 4 ML VIAL ONE (10:42)
[2022-03-21] MEDS ORDERED: Atropine 0.1 MG/ML 10 ml SYR (1 mg) ONE (10:42)
[2022-03-21] MEDS ORDERED: Norepinephrine 16MCG/ML BAG NS 0 MCG/0 ML BAG IV ONE (10:43)
[2022-03-21] MEDS ORDERED: Phenylephrine 40 mcg/mL 10mL (400mcg) SYRINGE ONE (10:46)
[2022-03-21] MEDS ORDERED: Ondansetron 4 mg VIAL 2 MG/ML 2 ml VIAL IV PRN (11:56)
[2022-03-21 18:27] VITALS: BP 108/69
== END 2022-03-21 18:30 | disposition home or self-care (01) ==
LOC: CHICATH 08:33 → ICU 08:33
PROVIDERS: ADMIT Specialist; ATTEND Internal Medicine

== ENCOUNTER 2023-04-22 10:06 | Observation (INO) ==
[2023-04-22 10:47] LABS: ABS Basophils 0.1 10^3/uL (0.0-0.1); ABS Lymphocytes 0.9 10^3/uL (1.0-4.8); ABS Monocytes 0.7 10^3/uL (0.0-0.9); ABS Neutrophils 9.2 10^3/uL (1.5-7.6); ABS Nucleated RBC 0.01 10^3/ul; Hematocrit 42.7 % (35-45); Hemoglobin 14.6 g/dL (11.5-14.3); Mean Corpuscular Hemoglobin 30.7 pg (27-33); Mean Corpuscular Hgb Conc 34.1 g/dL (31-36); Mean Corpuscular Volume 89.8 fL (80-97); Nucleated Red Blood Cells % 0.1 %/100WBC (0.0-0.8); Platelet Count 179 10^3/uL (150-450); Red Blood Count 4.76 10^6/uL (3.63-4.92); Red Cell Distribution Width 14.1 % (12-17); White Blood Count 10.8 10^3/uL (3.8-11.8)
[2023-04-22 11:05] LABS: Albumin/Globulin Ratio 1.5 (1-3); Calcium 8.8 mg/dL (8.6-10.3); Creatinine, Serum 0.68 mg/dL (0.51-0.95); Globulin 2.7 g/dL (2-4); Potassium 3.7 mmol/L (3.5-5.0); Total Bilirubin 0.4 mg/dL (0.2-1.0); Total Protein 6.7 g/dL (6.4-8.9); eGFR CKD-EPI 96.6 (>60)
[2023-04-22 11:07] LABS: Influenza A Molecular Negative (Negative); Influenza B Molecular Negative (Negative); Rapid COVID-19 Molecular Undetected (Undetected)
[2023-04-22] MEDS: Iohexol 350 (CONTRAST) 500 ML MDV IV ONE (11:44)
[2023-04-22] MEDS: Albuterol/Ipratropium NEB.SOL (2.5/0.5 MG) 3 ML NEB.SOLN INH ONE (12:30)
[2023-04-22] MEDS ORDERED: Albuterol 2.5mg/3 ml (0.083%) NEB.SOLN INH PRN (13:02)
[2023-04-22] MEDS: Albuterol/Ipratropium NEB.SOL (2.5/0.5 MG) 3 ML NEB.SOLN INH SCH (15:09)
[2023-04-22] MEDS: Nicotine PATCH 14 MG/24 HR PATCH TRANSDERM SCH (16:47)
[2023-04-23 06:18] LABS: ABS Lymphocytes 1.8 10^3/uL (1.0-4.8); ABS Nucleated RBC 0.01 10^3/ul; Eosinophil % 0.1 %; Hematocrit 39.2 % (35-45); Hemoglobin 13.7 g/dL (11.5-14.3); Lymphocyte % 16.3 %; Mean Corpuscular Hgb Conc 34.8 g/dL (31-36); Mean Platelet Volume 8.9 fL (7.5-11.2); Platelet Count 181 10^3/uL (150-450); Red Blood Count 4.41 10^6/uL (3.63-4.92); Red Cell Distribution Width 13.9 % (12-17); White Blood Count 10.9 10^3/uL (3.8-11.8)
[2023-04-23 06:36] LABS: Calcium 9.1 mg/dL (8.6-10.3); Creatinine, Serum 0.69 mg/dL (0.51-0.95); Magnesium 1.6 mg/dL (1.9-2.7); Potassium 3.6 mmol/L (3.5-5.0); eGFR CKD-EPI 96.3 (>60)
[2023-04-23] MEDS: Aspirin EC 81 mg TAB.EC (enteric coated) PO SCH (08:23)
[2023-04-23] MEDS: methylPREDNISolone SOD SUCC 125 mg 2 ML VIAL IV SCH (08:24)
[2023-04-23] MEDS ORDERED: Albuterol HFA INHALER 8 gm MDI INH PRN (09:37)
[2023-04-23] MEDS: methylPREDNISolone SOD SUCC 40 mg/ml 1 ml VIAL IV SCH (20:46)
[2023-04-24] MEDS: SPIRIVA Respimat (tiotropium) 2.5 mcg/inh Inhaler INH SCH (07:47)
[2023-04-24 10:13] VITALS: BP 108/67
== END 2023-04-24 12:10 | disposition home or self-care (01) ==
LOC: ED 10:06 → EDHOLD 10:06 → SUATTDRO 13:02 → MED 14:39
PROVIDERS: ADMIT Student in an Organized Health Care Education/Training Program; ATTEND Hospitalist

== ENCOUNTER 2024-02-23 10:41 | Inpatient (IN) ==
[2024-02-23 11:47] LABS: ABS Lymphocytes 1.1 10^3/uL (1.0-4.8); ABS Monocytes 0.5 10^3/uL (0.0-0.9); ABS Neutrophils 5.6 10^3/uL (1.5-7.6); Eosinophil % 0.1 %; Hematocrit 44.1 % (35-45); Lymphocyte % 14.5 %; Mean Corpuscular Hemoglobin 30.6 pg (27-33); Mean Corpuscular Volume 90.2 fL (80-97); Mean Platelet Volume 8.8 fL (7.5-11.2); Nucleated Red Blood Cells % 0.1 %/100WBC (0.0-0.8); Platelet Count 199 10^3/uL (150-450); Red Blood Count 4.89 10^6/uL (3.63-4.92); Red Cell Distribution Width 13.6 % (12-17); White Blood Count 7.2 10^3/uL (3.8-11.8)
[2024-02-23] MEDS: Albuterol/Ipratropium NEB.SOL (2.5/0.5 MG) 3 ML NEB.SOLN INH ONE ×2 (11:49→15:57)
[2024-02-23] MEDS: NS 0.9% 1000 ml BAG 1,000 ML IV ONE (11:50)
[2024-02-23 12:36] LABS: Albumin 4.4 g/dL (3.2-5.2); Albumin/Globulin Ratio 1.8 (1-3); C Reactive Protein 9.82 mg/L (<8.01); Calcium 9.6 mg/dL (8.6-10.3); Creatinine, Serum 0.8 mg/dL (0.51-0.95); Globulin 2.4 g/dL (2-4); Potassium 4.3 mmol/L (3.5-5.0); Total Bilirubin 0.5 mg/dL (0.2-1.0); Total Protein 6.8 g/dL (6.4-8.9); eGFR CKD-EPI 81.2 (>60)
[2024-02-23] MEDS: Iohexol 350 (CONTRAST) 500 ML MDV IV ONE (13:10)
[2024-02-23] MEDS: Nicotine PATCH 21 MG/24 HR PATCH TRANSDERM SCH (16:20)
[2024-02-23] MEDS: cefTRIAXone 1 gm/50 mL D5W 1 GM/50 ML BAG IV SCH (16:20)
[2024-02-23] MEDS: Azithromycin 500 mg/250 ml NS 500 MG/250 ML BAG IVPB SCH (16:49)
[2024-02-23] MEDS: Albuterol/Ipratropium NEB.SOL (2.5/0.5 MG) 3 ML NEB.SOLN INH SCH (19:14)
[2024-02-23] MEDS: Irbesartan 150 mg TAB (NF) PO SCH (22:07)
[2024-02-24 06:13] LABS: ABS Lymphocytes 0.7 10^3/uL (1.0-4.8); ABS Monocytes 0.6 10^3/uL (0.0-0.9); Hematocrit 36.6 % (35-45); Hemoglobin 12.4 g/dL (11.5-14.3); Lymphocyte % 10.2 %; Mean Corpuscular Hemoglobin 30.3 pg (27-33); Mean Corpuscular Hgb Conc 33.9 g/dL (31-36); Mean Corpuscular Volume 89.5 fL (80-97); Platelet Count 179 10^3/uL (150-450); Red Blood Count 4.09 10^6/uL (3.63-4.92); Red Cell Distribution Width 13.5 % (12-17); White Blood Count 7.3 10^3/uL (3.8-11.8)
[2024-02-24 06:42] LABS: Calcium 8.9 mg/dL (8.6-10.3); Creatinine, Serum 0.59 mg/dL (0.51-0.95); Magnesium 1.8 mg/dL (1.9-2.7); Potassium 3.6 mmol/L (3.5-5.0); eGFR CKD-EPI 99.3 (>60)
[2024-02-24] MEDS: Magnesium Sulfate 2 gm BAG 2 GM/50 ML BAG IVPB ONE (08:18)
[2024-02-24] MEDS ORDERED: Albuterol/Ipratropium NEB.SOL (2.5/0.5 MG) 3 ML NEB.SOLN INH PRN (08:44)
[2024-02-24] MEDS ORDERED: Saline NASAL SPRAY 0.65% BTL BOTH NARES PRN (10:46)
[2024-02-24] MEDS: Saline NASAL SPRAY 0.65% BTL BOTH NARES PRN (10:55)
[2024-02-24] MEDS: Albuterol/Ipratropium NEB.SOL (2.5/0.5 MG) 3 ML NEB.SOLN INH SCH (11:43)
[2024-02-24] MEDS ORDERED: Levalbuterol 1.25MG/0.5ML NEB.SOL INH PRN (15:55)
[2024-02-24] MEDS ORDERED: Levalbuterol 1.25MG/0.5ML NEB.SOL INH SCH (16:00)
[2024-02-24] MEDS: SPIRIVA Respimat (tiotropium) 2.5 mcg/inh Inhaler INH SCH (17:54)
[2024-02-24] MEDS: Levalbuterol 1.25MG/0.5ML NEB.SOL INH SCH (20:02)
[2024-02-25 06:40] LABS: Hematocrit 36.9 % (35-45); Hemoglobin 12.5 g/dL (11.5-14.3); Mean Corpuscular Hemoglobin 30.3 pg (27-33); Mean Corpuscular Hgb Conc 33.8 g/dL (31-36); Mean Corpuscular Volume 89.6 fL (80-97); Platelet Count 200 10^3/uL (150-450); Red Blood Count 4.12 10^6/uL (3.63-4.92); Red Cell Distribution Width 13.8 % (12-17); White Blood Count 12.5 10^3/uL (3.8-11.8)
[2024-02-25 07:05] LABS: Creatinine, Serum 0.7 mg/dL (0.51-0.95); Potassium 3.9 mmol/L (3.5-5.0); eGFR CKD-EPI 95.3 (>60)
[2024-02-25] MEDS: SPIRIVA Respimat (tiotropium) 2.5 mcg/inh Inhaler INH SCH (07:58)
[2024-02-25] MEDS: methylPREDNISolone SOD SUCC 40 mg/ml 1 ml VIAL IV SCH (10:32)
[2024-02-26 06:00] LABS: ABS Lymphocytes 0.8 10^3/uL (1.0-4.8); ABS Monocytes 0.5 10^3/uL (0.0-0.9); ABS Neutrophils 8.1 10^3/uL (1.5-7.6); Hematocrit 37.3 % (35-45); Hemoglobin 12.6 g/dL (11.5-14.3); Lymphocyte % 8.3 %; Mean Corpuscular Hemoglobin 30.3 pg (27-33); Mean Corpuscular Hgb Conc 33.8 g/dL (31-36); Mean Corpuscular Volume 89.8 fL (80-97); Mean Platelet Volume 8.8 fL (7.5-11.2); Platelet Count 192 10^3/uL (150-450); Red Blood Count 4.15 10^6/uL (3.63-4.92); Red Cell Distribution Width 13.9 % (12-17); White Blood Count 9.4 10^3/uL (3.8-11.8)
[2024-02-26 06:19] LABS: Calcium 9.2 mg/dL (8.6-10.3); Creatinine, Serum 0.58 mg/dL (0.51-0.95); Potassium 3.9 mmol/L (3.5-5.0); eGFR CKD-EPI 99.7 (>60)
[2024-02-26 13:33] VITALS: BP 147/76
== END 2024-02-26 14:45 | disposition home or self-care (01) | DRG 190 ==
LOC: EDHOLD 10:41 → ED 10:41 → SUATTDRO 15:27 → MED 19:40
PROVIDERS: ADMIT Internal Medicine; ATTEND Internal Medicine